=== PATIENT | male | born 1975 | race African-American/Black ===

== ENCOUNTER 2025-02-24 16:41 | Emergency (ER) | payer SELFPAY ==
[~2025-02-24] VITALS: Ht 188 cm; Wt 134.8 kg
[2025-02-24 17:00] VITALS: PULSE 83; RESP 18; TEMP 99; O2SAT 96
[2025-02-24] MEDS ORDERED: ONDANSETRON ODT4 MG PO (17:17)
[2025-02-24] MEDS ORDERED: THERAFLU NIGHT1 EAC5 PO (17:17)
[2025-02-24] MEDS ORDERED: FAMOTIDINE20 MG PO (17:17)
== END 2025-02-24 17:58 | disposition home or self-care (01) ==
LOC: FSED 16:43
DX: R05.9 Cough, unspecified (principal); K52.9 Noninfective gastroenteritis and colitis, unspecified; R11.2 Nausea with vomiting, unspecified; J44.9 Chronic obstructive pulmonary disease, unspecified; Z11.52 Encounter for screening for COVID-19; F17.210 Nicotine dependence, cigarettes, uncomplicated
CPT/HCPCS: 0223U; 71046; 87400; 99284

== ENCOUNTER 2025-08-18 14:36 | Emergency (ER) | payer OTHER ==
[~2025-08-18] VITALS: Ht 188 cm; Wt 128.1 kg
[~2025-08-18 14:36] MED LIST: FAMOTIDINE20 MG PO; ONDANSETRON ODT4 MG PO; THERAFLU NIGHT1 EAC5 PO
[2025-08-18] MEDS ORDERED: PROTONIX20 MG PO (15:10)
[2025-08-18] MEDS ORDERED: DOXYCYCLINE HY100 MG PO (15:20)
[2025-08-18] MEDS ORDERED: LIDOCAINE HCL 1% LOCAL INJ 20 ML VIAL ONE (15:27)
[2025-08-18] MEDS: CEFTRIAXONE 1 GM VIAL IM ONE (15:33)
[2025-08-18 15:34] VITALS: PULSE 82; RESP 18; TEMP 98.1; O2SAT 97
== END 2025-08-18 15:39 | disposition home or self-care (01) ==
LOC: FSED 14:49
DX: A63.8 Other specified predominantly sexually transmitted diseases (principal); N34.2 Other urethritis; K21.9 Gastro-esophageal reflux disease without esophagitis; F17.210 Nicotine dependence, cigarettes, uncomplicated
CPT/HCPCS: 81003; 96372; 99283; J0696; J2003